=== PATIENT | male | born 1980 | race African-American/Black ===

== ENCOUNTER 2018-10-13 21:40 | Inpatient (IN) | payer OTHER ==
[2018-10-13 22:41] VITALS: BMI 20.9
--- NOTE | 2018-10-14 00:19 | HP ---
CIWA Score - Admission Criteria [facility] Guidelines: Admission for Medically Managed Detox: Requires at least one of the followin. CIWA greater than 12 2. Seizures within the past 24 hours 3. Delirium tremens within the past 24 hours 4. Hallucinations within the past 24 hours 5. Acute intervention needed for co occurring medical disorder 6. Acute intervention needed for co occurring psychiatric disorder 7. Severe withdrawal that cannot be handled at a lower level of care (continued vomiting, continued diarrhea, abnormal vital signs) requiring intravenous medication and/or fluids 8. Admission ROS [facility] - HPI Chief Complaint: Seeking admission to Rehab Allergies/Adverse Reactions: Allergies Allergy/AdvReac Type Severity Reaction Status Date / Time No Known Allergies Allergy Verified 10/13/18 22:34 History of Present Illness: 38 years old male is seeking admission to Rehab. Patient reports that this is his first admission to Rehab and to [facility]. He denies past medical history and suicidal ideation at this time Exam Limitations: No Limitations - Ebola screening Have you traveled outside of the country in the last 21 days: No (N) Have you had contact with anyone from an Ebola affected area: No Have you been sick,other than usual withdrawal symptoms: No Do you have a fever: No - Review of Systems Constitutional: No Symptoms Reported EENT: reports: No Symptoms Reported Respiratory: reports: No Symptoms reported Cardiac: reports: No Symptoms Reported GI: reports: No Symptoms Reported : reports: No Symptoms Reported Musculoskeletal: reports: No Symptoms Reported Integumentary: reports: No Symptoms Reported Neuro: reports: No Symptoms reported Endocrine: reports: No Symptoms Reported Hematology: reports: No Symptoms Reported Psychiatric: reports: No Sypmtoms Reported, Mood/Affect Appropiate, Orientated x3 Other Systems: Reviewed and Negative Patient History - Patient Medical History Hx Anemia: No Hx Asthma: No Hx Chronic Obstructive Pulmonary Disease (COPD): No Hx Cancer: No Hx Cardiac Disorders: No Hx Congestive Heart Failure: No Hx Hypertension: No Hx Hypercholesterolemia: No Hx Pacemaker: No HX Cerebrovascular Accident: No Hx Seizures: No Hx Dementia: No Hx Diabetes: No Hx Gastrointestinal Disorders: No Hx Liver Disease: No Hx Genitourinary Disorders: No Hx Sexually Transmitted Disorders: No Hx Renal Disease (ESRD): No Hx Thyroid Disease: No Hx Human Immunodeficiency Virus (HIV): No (Negative 2017) Hx Hepatitis C: No Hx Depression: No Hx Suicide Attempt: No (Denies suicidal ideation at this time) Hx Bipolar Disorder: No Hx Schizophrenia: No - Patient Surgical History Past Surgical History: Yes Hx Neurologic Surgery: No Hx Cataract Extraction: No Hx Cardiac Surgery: No Hx Lung Surgery: No Hx Abdominal Surgery: No Hx Appendectomy: No Hx Cholecystectomy: No Hx Genitourinary Surgery: No Hx Orthopedic Surgery: No Hx Hysterectomy: No Other Surgical History: Hernia repai at age 7 Anesthesia Reaction: No - PPD History Previous Implant?: Yes Documented Results: Negative w/o proof Implanted On Prior [facility] Admission?: No PPD to be Administered?: Yes - Reproductive History Patient is a Female of Child Bearing Age (11 -55 yrs old): No (male) - Smoking Cessation Smoking history: Current every day smoker Have you smoked in the past 12 months: Yes Aproximately how many cigarettes per day: 20 Hx Chewing Tobacco Use: No Initiated information on smoking cessation: Yes 'Breaking Loose' booklet given: 10/14/18 - Substance & Tx. History Hx Alcohol Use: Yes Hx Substance Use: Yes Substance Use Type: Alcohol - Substances abused Alcohol Substance route: Oral Frequency: Daily Amount used: 3 bottles vodka Age of first use: 16 Date of last use: 09/25/18 Family Disease History - Family Disease History Family Disease History: CA: Father (throat- ), Mother (breast - ) Admission Physical Exam S - Vital Signs Vital Signs: Vital Signs - 24 hr 10/13/18 10/13/18 22:33 23:45 Temperature 98.2 F 98.2 F Pulse Rate 67 67 Respiratory 18 18 Rate Blood Pressure 131/69 131/69 - Physical General Appearance: Yes: Within Normal Limits, Appropriately Dressed HEENTM: Yes: EOMI, Normal ENT Inspection, Normal Voice, YUMIKO Respiratory: Yes: Lungs Clear, Normal Breath Sounds, No Respiratory Distress Neck: Yes: Within Normal Limits Breast: Yes: Within Normal Limits Cardiology: Yes: Regular Rhythm, Regular Rate Abdominal: Yes: Normal Bowel Sounds Genitourinary: Yes: Within Normal Limits Back: Yes: Normal Inspection Musculoskeletal: Yes: full range of Motion Extremities: Yes: Normal Inspection, Normal Range of Motion Neurological: Yes: Alert, Motor Strength 5/5, Normal Mood/Affect Integumentary: Yes: Warm Lymphatic: Yes: Within Normal Limits - Diagnostic (1) Uncomplicated alcohol dependence Current Visit: Yes Status: Acute (2) Nicotine dependence Current Visit: Yes Status: Chronic (3) Marijuana dependence Current Visit: Yes Status: Chronic Cleared for Admission S - Detox or Rehab [facility] Level of Care: Observation Bed Claeared for Rehab Admission: Yes Breathalyzer - Breathalyzer Breathalyzer: 0 Urine Drug Screen - Test Device Lot number: [id number] Expiration date: 07/06/20 - Control Is test valid?: Yes - Results Drug screen NEGATIVE: No Urine drug screen results: THC-Marijuana Inpatient Rehab Admission - Rehab Decision to Admit Inpatient rehab admission?: Yes - Initial Determination Are CD services needed?: No Free of communicable disease: Yes Not in need of hospitalization: Yes - Rehab Admission Criteria Previous failed treatment: Yes Poor recovery environment: Yes Comorbidities: Yes Lacks judgement: No Patient is meeting Inpatient Rehab admission criteria:: Yes
[2018-10-14] MEDS ORDERED: LOPERAMIDE HCL 2 MG CAPSULE PO PRN (00:39)
[2018-10-14] MEDS ORDERED: MENTHOL/PHENOL 1 EACH UD MM PRN (00:39)
[2018-10-14] MEDS ORDERED: guaiFENesin 200 MG/10 ML 10 ML UNIT-DOSE CUPS PO PRN (00:39)
[2018-10-14] MEDS ORDERED: ACETAMINOPHEN 325 MG TABLET (FP) PO PRN (00:39)
[2018-10-14] MEDS ORDERED: MAG HYDROX/AL HYDROX/SIMETH 30 ML UNIT-DOSE CUP PO PRN (00:39)
[2018-10-14] MEDS ORDERED: P-EPHED 60MG/TRIPROLIDI 2.5MG TABLET PO PRN (00:39)
[2018-10-14] MEDS ORDERED: MAGNESIUM CITRATE 300 ML BOTTLE PO PRN (00:39)
[2018-10-14] MEDS ORDERED: NICOTINE POLACRILEX 2 MG GUM BC PRN (00:39)
[2018-10-14] MEDS ORDERED: MAGNESIUM HYDROX 2400MG/30ML ORAL SUSPENSION 30 ML CUP PO PRN (00:39)
[2018-10-14] MEDS ORDERED: IBUPROFEN 400 MG TABLET (FP) PO PRN (00:39)
[2018-10-14] MEDS ORDERED: TUBERCULIN PPD 5 TU/0.1ML VIAL ID ONE (01:27)
[2018-10-14] MEDS: NICOTINE 14 MG/24 HOURS TOPICAL PATCH TD SCH (09:49)
[2018-10-14] MEDS: PRENATAL VITAMINS W/ FOLIC ACID TABLET (FP) PO SCH (09:49)
[2018-10-14 11:37] LABS: HEMATOCRIT 42.2 % (35.4-49); HEMOGLOBIN 14.1 GM/dL (11.7-16.9); MCH 34.5 pg (25.7-33.7); MCHC 33.3 g/dl (32.0-35.9); MEAN CELL VOLUME 103.5 fl (80-96); MEAN PLT VOLUME 8.3 fl (7.5-11.1); PLATELET COUNT 242 K/MM3 (134-434); RBC 4.08 M/mm3 (4.00-5.60); RDW 13.5 % (11.9-15.9); WHITE BLOOD COUNT 6.8 K/mm3 (4.0-10.0)
[2018-10-14 11:54] LABS: ALBUMIN 3.2 g/dl (3.4-5.0); BILIRUBIN,TOTAL 0.4 mg/dL (0.2-1); CALCIUM 8.4 mg/dL (8.5-10.1); CREATININE 0.9 mg/dL (0.55-1.3); POTASSIUM 3.9 mmol/L (3.5-5.1); TOT PROT 6.3 g/dl (6.4-8.2)
[2018-10-14 12:02] LABS: URINE APPEARANCE Clear; URINE BILIRUBIN Negative (NEGATIVE); URINE COLOR Yellow; URINE GLUCOSE (UA) Negative (NEGATIVE); URINE KETONE Trace (NEGATIVE); URINE LEUK ESTERASE Negative (NEGATIVE); URINE NITRITE Negative (NEGATIVE); URINE PROTEIN Trace (NEGATIVE); URINE UROBILINOGEN 0.2 mg/dL (0.2-1.0)
[2018-10-14] MEDS: THIAMINE HCL 100 MG TABLET (FP) PO SCH (21:35)
[2018-10-15] MEDS: PRENATAL VITAMINS W/ FOLIC ACID TABLET (FP) PO SCH (10:00)
[2018-10-15] MEDS: NICOTINE 14 MG/24 HOURS TOPICAL PATCH TD SCH (10:00)
--- NOTE | 2018-10-15 12:25 | EKG ---
Test Reason : Blood Pressure : / mmHG Vent. Rate : 060 BPM Atrial Rate : 060 BPM P-R Int : 146 ms QRS Dur : 090 ms QT Int : 380 ms P-R-T Axes : 081 065 071 degrees QTc Int : 380 ms NORMAL SINUS RHYTHM WITH SINUS ARRHYTHMIA NORMAL ECG NO PREVIOUS ECGS AVAILABLE Confirmed by THOM GORE, LEEROY ([id number]) on 10/15/2018 12:25:43 PM Referred By: GABE FLORES Confirmed By:LEEROY TOMAS MD
[2018-10-15] MEDS: THIAMINE HCL 100 MG TABLET (FP) PO SCH (21:35)
[2018-10-15] MEDS: MELATONIN 5 MG TABLETS PO PRN (21:36)
[2018-10-16] MEDS: NICOTINE 14 MG/24 HOURS TOPICAL PATCH TD SCH (10:45)
[2018-10-16] MEDS: PRENATAL VITAMINS W/ FOLIC ACID TABLET (FP) PO SCH (10:45)
[2018-10-16] MEDS: MELATONIN 5 MG TABLETS PO PRN (21:08)
[2018-10-16] MEDS: THIAMINE HCL 100 MG TABLET (FP) PO SCH (21:08)
[2018-10-17] MEDS: NICOTINE 14 MG/24 HOURS TOPICAL PATCH TD SCH (10:42)
[2018-10-17] MEDS: PRENATAL VITAMINS W/ FOLIC ACID TABLET (FP) PO SCH (10:42)
[2018-10-17] MEDS: MELATONIN 5 MG TABLETS PO PRN (22:11)
[2018-10-17] MEDS: THIAMINE HCL 100 MG TABLET (FP) PO SCH (22:11)
[2018-10-18] MEDS: NICOTINE 14 MG/24 HOURS TOPICAL PATCH TD SCH (10:28)
[2018-10-18] MEDS: PRENATAL VITAMINS W/ FOLIC ACID TABLET (FP) PO SCH (10:28)
[2018-10-18] MEDS: MELATONIN 5 MG TABLETS PO PRN (21:16)
[2018-10-18] MEDS: THIAMINE HCL 100 MG TABLET (FP) PO SCH (21:16)
[2018-10-19] MEDS: PRENATAL VITAMINS W/ FOLIC ACID TABLET (FP) PO SCH (10:21)
[2018-10-19] MEDS: NICOTINE 14 MG/24 HOURS TOPICAL PATCH TD SCH (10:22)
[2018-10-19] MEDS: MELATONIN 5 MG TABLETS PO PRN (21:11)
[2018-10-19] MEDS: THIAMINE HCL 100 MG TABLET (FP) PO SCH (21:11)
[2018-10-20] MEDS: PRENATAL VITAMINS W/ FOLIC ACID TABLET (FP) PO SCH (10:06)
[2018-10-20] MEDS: NICOTINE 14 MG/24 HOURS TOPICAL PATCH TD SCH (10:06)
[2018-10-20] MEDS: MELATONIN 5 MG TABLETS PO PRN (22:06)
[2018-10-20] MEDS: THIAMINE HCL 100 MG TABLET (FP) PO SCH (22:06)
[2018-10-21] MEDS: PRENATAL VITAMINS W/ FOLIC ACID TABLET (FP) PO SCH (10:41)
[2018-10-21] MEDS: NICOTINE 14 MG/24 HOURS TOPICAL PATCH TD SCH (10:41)
[2018-10-21] MEDS: THIAMINE HCL 100 MG TABLET (FP) PO SCH (21:57)
[2018-10-21] MEDS: MELATONIN 5 MG TABLETS PO PRN (21:57)
[2018-10-22 07:16] VITALS: TEMP 97.2
[2018-10-22] MEDS: NICOTINE 14 MG/24 HOURS TOPICAL PATCH TD SCH (10:39)
[2018-10-22] MEDS: PRENATAL VITAMINS W/ FOLIC ACID TABLET (FP) PO SCH (10:39)
[2018-10-22] MEDS: THIAMINE HCL 100 MG TABLET (FP) PO SCH (21:42)
[2018-10-22] MEDS: MELATONIN 5 MG TABLETS PO PRN (21:42)
[2018-10-23 07:02] VITALS: BP 116/72; PULSE 78
[2018-10-23] MEDS: NICOTINE 14 MG/24 HOURS TOPICAL PATCH TD SCH (11:00)
[2018-10-23] MEDS: PRENATAL VITAMINS W/ FOLIC ACID TABLET (FP) PO SCH (11:00)
--- NOTE | 2018-10-23 15:39 | PN ---
[facility] Progress Note Note: Notified by RN, patient became agitated and verbally threatening towards staff. Patient refused redirection and while in assigned room, started yelling and threw bedside chair about the room. Security notified to unit and patient was informed by song writer, security team and counseling staff that his behaviour is unacceptable and places other patients/staff at risk. Patient is alert and oriented x 3, medically stable and denies SI/HI. Patient informed he will be administratively discharged and left unit at 3:33 pm escorted by security staff. Vital Signs Temperature 97.2 F L 10/23/18 07:02 Pulse Rate 78 10/23/18 07:02 Respiratory Rate 16 10/23/18 07:02 Blood Pressure 116/72 10/23/18 07:02 O2 Sat by Pulse Oximetry (%)
== END 2018-10-23 15:30 | disposition home or self-care (01) | DRG 772 ==
LOC: YASAS 21:40 → Y5N 10-14 00:54
PROVIDERS: ADMIT Neuromusculoskeletal Medicine & OMM; ATTEND Neuromusculoskeletal Medicine & OMM
PROC: HZ42ZZZ Group Counseling for Substance Abuse Treatment, Cognitive-Behavioral (ICD-10-PCS; principal; 2018-10-17)
DX: F10.20 Alcohol dependence, uncomplicated (principal); F12.20 Cannabis dependence, uncomplicated; F17.210 Nicotine dependence, cigarettes, uncomplicated
CPT/HCPCS: 36415; 80053; 81003; 85027; 86593; 93005; 93010

== ENCOUNTER 2020-12-31 11:28 | Inpatient (IN) | payer OTHER ==
[2020-12-31 12:47] VITALS: BMI 18.1
[2020-12-31] MEDS ORDERED: ACETAMINOPHEN 325 MG TABLET (FP) PO PRN ×2 (13:07)
[2020-12-31] MEDS ORDERED: METHOCARBAMOL 500 MG TABLET PO PRN (13:07)
[2020-12-31] MEDS ORDERED: MENTHOL/PHENOL 1 EACH UD MM PRN (13:07)
[2020-12-31] MEDS ORDERED: LORazepam 1 MG TABLET PO PRN (13:07)
[2020-12-31] MEDS ORDERED: MAG HYDROX/AL HYDROX/SIMETH 30 ML UNIT-DOSE CUP PO PRN (13:07)
[2020-12-31] MEDS ORDERED: MAGNESIUM HYDROX 2400MG/30ML ORAL SUSPENSION 30 ML CUP PO PRN (13:07)
[2020-12-31] MEDS ORDERED: NICOTINE POLACRILEX 2 MG GUM BUC PRN (13:07)
[2020-12-31] MEDS ORDERED: MAGNESIUM CITRATE 300 ML BOTTLE PO PRN (13:07)
[2020-12-31] MEDS ORDERED: IBUPROFEN 400 MG TABLET (FP) PO PRN (13:07)
[2020-12-31] MEDS ORDERED: BISMUTH SUBSALICYLATE 262 MG/15 ML BTL PO PRN (13:07)
[2020-12-31] MEDS ORDERED: ONDANSETRON *ODT* 4 MG TABLET SL PRN (13:07)
[2020-12-31] MEDS: NICOTINE 21 MG/24 HOURS TOPICAL PATCH TD SCH (15:12)
[2020-12-31] MEDS: PRENATAL VITAMINS W/ FOLIC ACID TABLET (FP) PO SCH (15:12)
[2020-12-31] MEDS: hydrOXYzine PAMOATE 25 MG CAPSULE (FP) PO SCH ×3 (15:12→22:32)
[2020-12-31 15:50] LABS: ALBUMIN 3.6 g/dl (3.4-5.0); BLOOD UREA NITROGEN 11.3 mg/dL (7-18)
[2020-12-31 15:51] LABS: HEMATOCRIT 36.7 % (35.4-49); HEMOGLOBIN 11.9 GM/dL (11.7-16.9); MCH 29.1 pg (25.7-33.7); MCHC 32.5 g/dl (32.0-35.9); MEAN CELL VOLUME 89.6 fl (80-96); MEAN PLT VOLUME 10.2 fl (7.5-11.1); PLATELET COUNT 175 10^3/uL (134-434); RDW 14.3 % (11.9-15.9); WHITE BLOOD COUNT 15.6 K/mm3 (4.0-10.0)
[2020-12-31 15:53] LABS: CREATININE 0.7 mg/dL (0.55-1.3)
[2020-12-31 15:55] LABS: BILIRUBIN,TOTAL 0.4 mg/dL (0.2-1); TOT PROT 7.2 g/dl (6.4-8.2)
[2020-12-31] MEDS: LORazepam 2 MG TABLET PO SCH ×2 (19:34→22:31)
[2020-12-31] MEDS: THIAMINE HCL 100 MG TABLET (FP) PO SCH (22:30)
[2020-12-31] MEDS: MELATONIN 5 MG TABLETS PO SCH (22:30)
[2021-01-01] MEDS: LORazepam 2 MG TABLET PO SCH ×4 (06:36→22:42)
[2021-01-01] MEDS: hydrOXYzine PAMOATE 25 MG CAPSULE (FP) PO SCH ×2 (06:36→10:35)
[2021-01-01] MEDS: PRENATAL VITAMINS W/ FOLIC ACID TABLET (FP) PO SCH (10:37)
[2021-01-01] MEDS: NICOTINE 21 MG/24 HOURS TOPICAL PATCH TD SCH (10:37)
[2021-01-01] MEDS: THIAMINE HCL 100 MG TABLET (FP) PO SCH (22:42)
[2021-01-01] MEDS: MELATONIN 5 MG TABLETS PO SCH (22:42)
[2021-01-01] MEDS: METOPROLOL TARTRATE 25 MG TABLET (FP) PO SCH (22:43)
[2021-01-01] MEDS: hydrOXYzine PAMOATE 25 MG CAPSULE (FP) PO PRN (23:09)
[2021-01-02] MEDS: LORazepam 1 MG TABLET PO SCH ×4 (06:27→22:56)
[2021-01-02] MEDS ORDERED: ATENOLOL 25 MG TABLET (FP) PO SCH (10:00)
[2021-01-02] MEDS: NICOTINE 21 MG/24 HOURS TOPICAL PATCH TD SCH (10:40)
[2021-01-02] MEDS: PANTOPRAZOLE 20 MG TABLET PO SCH (10:41)
[2021-01-02] MEDS: PRENATAL VITAMINS W/ FOLIC ACID TABLET (FP) PO SCH (10:41)
[2021-01-02] MEDS: METOPROLOL TARTRATE 25 MG TABLET (FP) PO SCH ×2 (10:44→22:55)
[2021-01-02] MEDS ORDERED: NICOTINE 10 MG CARTRIDGE (INHALER) IH PRN (12:34)
[2021-01-02] MEDS: MELATONIN 5 MG TABLETS PO SCH (22:54)
[2021-01-02] MEDS: THIAMINE HCL 100 MG TABLET (FP) PO SCH (22:55)
[2021-01-02] MEDS: QUEtiapine FUMARATE 50 MG TABLET PO SCH (22:56)
[2021-01-03] MEDS ORDERED: LORazepam 0.5 MG TABLET PO PRN
[2021-01-03] MEDS: LORazepam 0.5 MG TABLET PO SCH ×4 (06:42→22:36)
[2021-01-03] MEDS: PANTOPRAZOLE 20 MG TABLET PO SCH (10:50)
[2021-01-03] MEDS: METOPROLOL TARTRATE 25 MG TABLET (FP) PO SCH ×2 (10:50→22:37)
[2021-01-03] MEDS: PRENATAL VITAMINS W/ FOLIC ACID TABLET (FP) PO SCH (10:51)
[2021-01-03] MEDS: NICOTINE 21 MG/24 HOURS TOPICAL PATCH TD SCH (10:51)
[2021-01-03] MEDS: hydrOXYzine PAMOATE 25 MG CAPSULE (FP) PO PRN (10:51)
[2021-01-03 11:04] LABS: BASO % 0.1 % (0-2.0); EOS % 2.4 % (0-4.5); HEMATOCRIT 38.3 % (35.4-49); HEMOGLOBIN 12.8 GM/dL (11.7-16.9); MCH 29.8 pg (25.7-33.7); MCHC 33.3 g/dl (32.0-35.9); MEAN CELL VOLUME 89.4 fl (80-96); MEAN PLT VOLUME 9.9 fl (7.5-11.1); MONO % 16.5 % (3.8-10.2); PLATELET COUNT 172 10^3/uL (134-434); RBC 4.28 M/mm3 (4.00-5.60); WHITE BLOOD COUNT 7.4 K/mm3 (4.0-10.0)
[2021-01-03 11:12] LABS: INR 1.03 (0.83-1.09); PROTHROMBIN TIME (PATIENT) 12.5 SEC (9.7-13.0)
[2021-01-03 11:23] LABS: CALCIUM 8.9 mg/dL (8.5-10.1)
[2021-01-03 11:24] LABS: ALBUMIN 3.3 g/dl (3.4-5.0); BLOOD UREA NITROGEN 10.8 mg/dL (7-18)
[2021-01-03 11:27] LABS: CREATININE 0.7 mg/dL (0.55-1.3)
[2021-01-03 11:28] LABS: BILIRUBIN,TOTAL 0.4 mg/dL (0.2-1); TOT PROT 7.1 g/dl (6.4-8.2)
[2021-01-03] MEDS: QUEtiapine FUMARATE 50 MG TABLET PO SCH (22:36)
[2021-01-03] MEDS: THIAMINE HCL 100 MG TABLET (FP) PO SCH (22:36)
[2021-01-03] MEDS: MELATONIN 5 MG TABLETS PO SCH (22:37)
[2021-01-04] MEDS ORDERED: LORazepam 0.5 MG TABLET PO ONE (05:00)
[2021-01-04] MEDS: PRENATAL VITAMINS W/ FOLIC ACID TABLET (FP) PO SCH (10:05)
[2021-01-04] MEDS: PANTOPRAZOLE 20 MG TABLET PO SCH (10:05)
[2021-01-04] MEDS: METOPROLOL TARTRATE 25 MG TABLET (FP) PO SCH (10:05)
[2021-01-04] MEDS: NICOTINE 21 MG/24 HOURS TOPICAL PATCH TD SCH (10:06)
[2021-01-04 13:37] VITALS: BP 128/69; PULSE 106; TEMP 97.1
== END 2021-01-04 15:45 | disposition other institution (70) | DRG 774 ==
LOC: YASAS 11:28 → Y3N 12:49
PROVIDERS: ADMIT Allergy & Immunology; ATTEND Allergy & Immunology
PROC: HZ2ZZZZ Detoxification Services for Substance Abuse Treatment (ICD-10-PCS; principal; 2020-12-31)
DX: F10.230 Alcohol dependence with withdrawal, uncomplicated (principal); F14.20 Cocaine dependence, uncomplicated; F12.20 Cannabis dependence, uncomplicated; F17.210 Nicotine dependence, cigarettes, uncomplicated; F43.10 Post-traumatic stress disorder, unspecified; F19.24 Other psychoactive substance dependence with psychoactive substance-induced mood disorder; I10 Essential (primary) hypertension; R73.9 Hyperglycemia, unspecified; E87.1 Hypo-osmolality and hyponatremia; E88.09 Other disorders of plasma-protein metabolism, not elsewhere classified; R94.5 Abnormal results of liver function studies; E05.90 Thyrotoxicosis, unspecified without thyrotoxic crisis or storm; G47.00 Insomnia, unspecified; Z91.14 Patient's other noncompliance with medication regimen; Z56.0 Unemployment, unspecified; Z59.0 Homelessness
CPT/HCPCS: 36415; 80053; 82947; 85025; 85027; 85610; 86780; 93005; 93010; C9803; U0003; U0005

== ENCOUNTER 2021-01-04 16:55 | Inpatient (IN) | payer OTHER ==
[2021-01-04] MEDS ORDERED: MENTHOL/PHENOL 1 EACH UD MM PRN (18:16)
[2021-01-04] MEDS ORDERED: MAGNESIUM HYDROX 2400MG/30ML ORAL SUSPENSION 30 ML CUP PO PRN (18:16)
[2021-01-04] MEDS ORDERED: MAGNESIUM CITRATE 300 ML BOTTLE PO PRN (18:16)
[2021-01-04] MEDS ORDERED: P-EPHED 60MG/TRIPROLIDI 2.5MG TABLET PO PRN (18:16)
[2021-01-04] MEDS ORDERED: MAG HYDROX/AL HYDROX/SIMETH 30 ML UNIT-DOSE CUP PO PRN (18:16)
[2021-01-04] MEDS ORDERED: ACETAMINOPHEN 325 MG TABLET (FP) PO PRN (18:16)
[2021-01-04] MEDS ORDERED: guaiFENesin 200 MG/10 ML 10 ML UNIT-DOSE CUPS PO PRN (18:16)
[2021-01-04] MEDS ORDERED: NICOTINE POLACRILEX 2 MG GUM BUC PRN (18:16)
[2021-01-04] MEDS ORDERED: LOPERAMIDE HCL 2 MG CAPSULE PO PRN (18:16)
[2021-01-04] MEDS ORDERED: IBUPROFEN 400 MG TABLET (FP) PO PRN (18:16)
[2021-01-04] MEDS: THIAMINE HCL 100 MG TABLET (FP) PO SCH (21:29)
[2021-01-04] MEDS: MELATONIN 5 MG TABLETS PO SCH (21:29)
[2021-01-04] MEDS ORDERED: PT OWN MED DRAWER 7, Y5N ONE (21:30)
[2021-01-04] MEDS: QUEtiapine FUMARATE 300 MG TABLET PO SCH (21:31)
[2021-01-04] MEDS: METOPROLOL TARTRATE 25 MG TABLET (FP) PO SCH (21:31)
[2021-01-05] MEDS ORDERED: PT OWN MED DRAWER 7, Y5N ONE ×3 (08:45→19:56)
[2021-01-05] MEDS: PRENATAL VITAMINS W/ FOLIC ACID TABLET (FP) PO SCH (09:29)
[2021-01-05] MEDS: PANTOPRAZOLE 20 MG TABLET PO SCH (09:29)
[2021-01-05] MEDS: NICOTINE 7 MG/24 HOURS TOPICAL PATCH TD SCH (09:29)
[2021-01-05] MEDS: METOPROLOL TARTRATE 25 MG TABLET (FP) PO SCH ×2 (09:29→22:16)
[2021-01-05] MEDS ORDERED: INSULIN (NOVOLOG) ASPART 100 UNITS/ML 10ML VIAL ONE (16:38)
[2021-01-05] MEDS: INSULIN SLIDING SCALE (NOVOLOG) 1 VIAL SQ SCH ×2 (16:40→21:06)
[2021-01-05] MEDS ORDERED: INSULIN (NOVOLOG) ASPART 100 UNITS/ML 10ML VIAL SQ ONE (17:04)
[2021-01-05] MEDS: QUEtiapine FUMARATE 300 MG TABLET PO SCH (21:45)
[2021-01-05] MEDS: THIAMINE HCL 100 MG TABLET (FP) PO SCH (21:45)
[2021-01-05] MEDS: MELATONIN 5 MG TABLETS PO SCH (21:46)
[2021-01-05] MEDS: hydrOXYzine PAMOATE 25 MG CAPSULE (FP) PO PRN (21:46)
[2021-01-06] MEDS: INSULIN SLIDING SCALE (NOVOLOG) 1 VIAL SQ SCH ×4 (06:36→21:25)
[2021-01-06] MEDS ORDERED: PT OWN MED DRAWER 7, Y5N ONE ×3 (07:28→19:23)
[2021-01-06] MEDS: PRENATAL VITAMINS W/ FOLIC ACID TABLET (FP) PO SCH (10:02)
[2021-01-06] MEDS: NICOTINE 7 MG/24 HOURS TOPICAL PATCH TD SCH (10:02)
[2021-01-06] MEDS: PANTOPRAZOLE 20 MG TABLET PO SCH (10:02)
[2021-01-06] MEDS: METOPROLOL TARTRATE 25 MG TABLET (FP) PO SCH ×2 (10:12→21:23)
[2021-01-06] MEDS: TETRAHYDROZOLINE HCL EYE DROPS OU PRN (15:36)
[2021-01-06] MEDS ORDERED: INSULIN (NOVOLOG) ASPART 100 UNITS/ML 10ML VIAL ONE (21:15)
[2021-01-06] MEDS: QUEtiapine FUMARATE 300 MG TABLET PO SCH (21:24)
[2021-01-06] MEDS: THIAMINE HCL 100 MG TABLET (FP) PO SCH (21:25)
[2021-01-06] MEDS: MELATONIN 5 MG TABLETS PO SCH (21:25)
[2021-01-07] MEDS: INSULIN SLIDING SCALE (NOVOLOG) 1 VIAL SQ SCH ×4 (06:41→21:48)
[2021-01-07] MEDS ORDERED: PT OWN MED DRAWER 7, Y5N ONE ×3 (08:44→19:09)
[2021-01-07] MEDS: PANTOPRAZOLE 20 MG TABLET PO SCH (09:54)
[2021-01-07] MEDS: ATENOLOL 25 MG TABLET (FP) PO SCH (09:54)
[2021-01-07] MEDS: NICOTINE 7 MG/24 HOURS TOPICAL PATCH TD SCH (09:54)
[2021-01-07] MEDS: PRENATAL VITAMINS W/ FOLIC ACID TABLET (FP) PO SCH (09:54)
[2021-01-07] MEDS: TETRAHYDROZOLINE HCL EYE DROPS OU PRN (09:56)
[2021-01-07] MEDS: METHIMAZOLE 10 MG TABLET PO SCH ×2 (11:57→21:33)
[2021-01-07] MEDS ORDERED: INSULIN (NOVOLOG) ASPART 100 UNITS/ML 10ML VIAL ONE ×2 (16:55→21:49)
[2021-01-07] MEDS: MELATONIN 5 MG TABLETS PO SCH (21:31)
[2021-01-07] MEDS: THIAMINE HCL 100 MG TABLET (FP) PO SCH (21:32)
[2021-01-07] MEDS: QUEtiapine FUMARATE 300 MG TABLET PO SCH (21:32)
[2021-01-07] MEDS: hydrOXYzine PAMOATE 25 MG CAPSULE (FP) PO PRN (21:33)
[2021-01-08] MEDS: INSULIN SLIDING SCALE (NOVOLOG) 1 VIAL SQ SCH ×4 (06:48→21:41)
[2021-01-08] MEDS ORDERED: PT OWN MED DRAWER 7, Y5N ONE ×3 (08:13→18:30)
[2021-01-08] MEDS: NICOTINE 7 MG/24 HOURS TOPICAL PATCH TD SCH (09:43)
[2021-01-08] MEDS: PRENATAL VITAMINS W/ FOLIC ACID TABLET (FP) PO SCH (09:43)
[2021-01-08] MEDS: PANTOPRAZOLE 20 MG TABLET PO SCH (09:43)
[2021-01-08] MEDS: ATENOLOL 25 MG TABLET (FP) PO SCH (09:44)
[2021-01-08] MEDS: METHIMAZOLE 10 MG TABLET PO SCH ×2 (09:44→21:40)
[2021-01-08] MEDS: NICOTINE 10 MG CARTRIDGE (INHALER) IH PRN (09:45)
[2021-01-08] MEDS: TETRAHYDROZOLINE HCL EYE DROPS OU PRN ×2 (09:53→21:38)
[2021-01-08] MEDS: QUEtiapine FUMARATE 300 MG TABLET PO SCH (21:39)
[2021-01-08] MEDS: THIAMINE HCL 100 MG TABLET (FP) PO SCH (21:39)
[2021-01-08] MEDS: hydrOXYzine PAMOATE 25 MG CAPSULE (FP) PO PRN (21:40)
[2021-01-08] MEDS: MELATONIN 5 MG TABLETS PO SCH (21:40)
[2021-01-09] MEDS ORDERED: INSULIN (NOVOLOG) ASPART 100 UNITS/ML 10ML VIAL ONE ×3 (07:04→21:49)
[2021-01-09] MEDS: INSULIN SLIDING SCALE (NOVOLOG) 1 VIAL SQ SCH ×4 (08:34→21:34)
[2021-01-09] MEDS ORDERED: PT OWN MED DRAWER 7, Y5N ONE ×3 (08:53→18:46)
[2021-01-09] MEDS: NICOTINE 7 MG/24 HOURS TOPICAL PATCH TD SCH (09:45)
[2021-01-09] MEDS: ATENOLOL 25 MG TABLET (FP) PO SCH (09:46)
[2021-01-09] MEDS: PANTOPRAZOLE 20 MG TABLET PO SCH (09:46)
[2021-01-09] MEDS: PRENATAL VITAMINS W/ FOLIC ACID TABLET (FP) PO SCH (09:46)
[2021-01-09] MEDS: METHIMAZOLE 10 MG TABLET PO SCH ×2 (09:47→21:32)
[2021-01-09] MEDS: QUEtiapine FUMARATE 300 MG TABLET PO SCH (21:31)
[2021-01-09] MEDS: THIAMINE HCL 100 MG TABLET (FP) PO SCH (21:32)
[2021-01-09] MEDS: MELATONIN 5 MG TABLETS PO SCH (21:32)
[2021-01-10] MEDS: INSULIN SLIDING SCALE (NOVOLOG) 1 VIAL SQ SCH ×4 (06:53→22:12)
[2021-01-10] MEDS ORDERED: PT OWN MED DRAWER 7, Y5N ONE (08:27)
[2021-01-10] MEDS: PANTOPRAZOLE 20 MG TABLET PO SCH (09:32)
[2021-01-10] MEDS: ATENOLOL 25 MG TABLET (FP) PO SCH (09:32)
[2021-01-10] MEDS: METHIMAZOLE 10 MG TABLET PO SCH ×2 (09:33→22:13)
[2021-01-10] MEDS: PRENATAL VITAMINS W/ FOLIC ACID TABLET (FP) PO SCH (09:33)
[2021-01-10] MEDS: NICOTINE 7 MG/24 HOURS TOPICAL PATCH TD SCH (09:33)
[2021-01-10] MEDS: TETRAHYDROZOLINE HCL EYE DROPS OU PRN ×2 (09:33→22:10)
[2021-01-10] MEDS ORDERED: INSULIN (NOVOLOG) ASPART 100 UNITS/ML 10ML VIAL ONE ×3 (11:55→22:51)
[2021-01-10] MEDS: THIAMINE HCL 100 MG TABLET (FP) PO SCH (22:11)
[2021-01-10] MEDS: QUEtiapine FUMARATE 300 MG TABLET PO SCH (22:12)
[2021-01-10] MEDS: MELATONIN 5 MG TABLETS PO SCH (22:13)
[2021-01-11] MEDS: INSULIN SLIDING SCALE (NOVOLOG) 1 VIAL SQ SCH ×4 (06:43→22:00)
[2021-01-11] MEDS ORDERED: PT OWN MED DRAWER 7, Y5N ONE ×3 (08:18→20:28)
[2021-01-11] MEDS: NICOTINE 7 MG/24 HOURS TOPICAL PATCH TD SCH (09:24)
[2021-01-11] MEDS: PRENATAL VITAMINS W/ FOLIC ACID TABLET (FP) PO SCH (09:24)
[2021-01-11] MEDS: ATENOLOL 25 MG TABLET (FP) PO SCH (09:25)
[2021-01-11] MEDS: PANTOPRAZOLE 20 MG TABLET PO SCH (09:25)
[2021-01-11] MEDS: METHIMAZOLE 10 MG TABLET PO SCH ×2 (09:25→22:00)
[2021-01-11] MEDS ORDERED: MASKS NR ONE (09:34)
[2021-01-11] MEDS: QUEtiapine FUMARATE 300 MG TABLET PO SCH (21:58)
[2021-01-11] MEDS: THIAMINE HCL 100 MG TABLET (FP) PO SCH (21:58)
[2021-01-11] MEDS: MELATONIN 5 MG TABLETS PO SCH (21:59)
[2021-01-12] MEDS: INSULIN SLIDING SCALE (NOVOLOG) 1 VIAL SQ SCH ×4 (07:03→21:30)
[2021-01-12] MEDS ORDERED: PT OWN MED DRAWER 7, Y5N ONE ×2 (08:48→09:56)
[2021-01-12] MEDS: PANTOPRAZOLE 20 MG TABLET PO SCH (09:55)
[2021-01-12] MEDS: PRENATAL VITAMINS W/ FOLIC ACID TABLET (FP) PO SCH (09:55)
[2021-01-12] MEDS: METHIMAZOLE 10 MG TABLET PO SCH ×2 (09:55→21:30)
[2021-01-12] MEDS: NICOTINE 7 MG/24 HOURS TOPICAL PATCH TD SCH (09:55)
[2021-01-12] MEDS: ATENOLOL 25 MG TABLET (FP) PO SCH (09:55)
[2021-01-12] MEDS: NICOTINE 10 MG CARTRIDGE (INHALER) IH PRN (10:20)
[2021-01-12] MEDS ORDERED: INSULIN (NOVOLOG) ASPART 100 UNITS/ML 10ML VIAL ONE (16:20)
[2021-01-12] MEDS ORDERED: QUEtiapine FUMARATE 50 MG TABLET PO SCH (19:12)
[2021-01-12] MEDS: MELATONIN 5 MG TABLETS PO SCH (21:28)
[2021-01-12] MEDS: THIAMINE HCL 100 MG TABLET (FP) PO SCH (21:28)
[2021-01-12] MEDS ORDERED: INSULIN (LEVEMIR) 100 UNITS/ML UNITS SQ ONE (21:59)
[2021-01-13] MEDS: INSULIN SLIDING SCALE (NOVOLOG) 1 VIAL SQ SCH ×2 (07:36→17:31)
[2021-01-13] MEDS ORDERED: PT OWN MED DRAWER 7, Y5N ONE ×3 (08:03→09:46)
[2021-01-13] MEDS: PANTOPRAZOLE 20 MG TABLET PO SCH (09:44)
[2021-01-13] MEDS: PRENATAL VITAMINS W/ FOLIC ACID TABLET (FP) PO SCH (09:45)
[2021-01-13] MEDS: NICOTINE 7 MG/24 HOURS TOPICAL PATCH TD SCH (09:45)
[2021-01-13] MEDS: ATENOLOL 25 MG TABLET (FP) PO SCH (09:45)
[2021-01-13] MEDS: METHIMAZOLE 10 MG TABLET PO SCH ×2 (09:45→21:49)
[2021-01-13] MEDS: TETRAHYDROZOLINE HCL EYE DROPS OU PRN (09:46)
[2021-01-13] MEDS ORDERED: hydrOXYzine PAMOATE 25 MG CAPSULE (FP) PO PRN (11:16)
[2021-01-13] MEDS: PRAZOSIN HCL 1 MG CAPSULE PO SCH (21:47)
[2021-01-13] MEDS: THIAMINE HCL 100 MG TABLET (FP) PO SCH (21:48)
[2021-01-13] MEDS ORDERED: QUEtiapine FUMARATE 200 MG TABLET PO SCH (22:00)
[2021-01-14] MEDS: INSULIN SLIDING SCALE (NOVOLOG) 1 VIAL SQ SCH (07:12)
[2021-01-14] MEDS: PRENATAL VITAMINS W/ FOLIC ACID TABLET (FP) PO SCH (09:41)
[2021-01-14] MEDS: PANTOPRAZOLE 20 MG TABLET PO SCH (09:41)
[2021-01-14] MEDS: ATENOLOL 25 MG TABLET (FP) PO SCH (09:41)
[2021-01-14] MEDS: METHIMAZOLE 10 MG TABLET PO SCH ×2 (09:41→21:25)
[2021-01-14] MEDS: NICOTINE 7 MG/24 HOURS TOPICAL PATCH TD SCH (09:42)
[2021-01-14] MEDS: TETRAHYDROZOLINE HCL EYE DROPS OU PRN (09:43)
[2021-01-14] MEDS: metFORMIN HCL 500 MG TABLET (FP) PO SCH (16:48)
[2021-01-14] MEDS ORDERED: PT OWN MED DRAWER 7, Y5N ONE (19:10)
[2021-01-14] MEDS: THIAMINE HCL 100 MG TABLET (FP) PO SCH (21:24)
[2021-01-14] MEDS: QUEtiapine FUMARATE 50 MG TABLET PO SCH (21:25)
[2021-01-14] MEDS: PRAZOSIN HCL 1 MG CAPSULE PO SCH (21:25)
[2021-01-15] MEDS: metFORMIN HCL 500 MG TABLET (FP) PO SCH ×2 (06:47→16:40)
[2021-01-15] MEDS ORDERED: PT OWN MED DRAWER 7, Y5N ONE ×3 (08:55→22:14)
[2021-01-15] MEDS: METHIMAZOLE 10 MG TABLET PO SCH ×2 (09:37→21:49)
[2021-01-15] MEDS: PANTOPRAZOLE 20 MG TABLET PO SCH (09:37)
[2021-01-15] MEDS: ATENOLOL 25 MG TABLET (FP) PO SCH (09:37)
[2021-01-15] MEDS: PRENATAL VITAMINS W/ FOLIC ACID TABLET (FP) PO SCH (09:37)
[2021-01-15] MEDS: NICOTINE 7 MG/24 HOURS TOPICAL PATCH TD SCH (09:37)
[2021-01-15] MEDS: PRAZOSIN HCL 1 MG CAPSULE PO SCH (21:43)
[2021-01-15] MEDS: QUEtiapine FUMARATE 50 MG TABLET PO SCH (21:48)
[2021-01-15] MEDS: THIAMINE HCL 100 MG TABLET (FP) PO SCH (21:49)
[2021-01-16] MEDS: metFORMIN HCL 500 MG TABLET (FP) PO SCH ×2 (06:28→17:49)
[2021-01-16] MEDS ORDERED: PT OWN MED DRAWER 7, Y5N ONE ×3 (08:47→21:56)
[2021-01-16] MEDS: ATENOLOL 25 MG TABLET (FP) PO SCH (10:11)
[2021-01-16] MEDS: METHIMAZOLE 10 MG TABLET PO SCH ×2 (10:11→21:39)
[2021-01-16] MEDS: PRENATAL VITAMINS W/ FOLIC ACID TABLET (FP) PO SCH (10:11)
[2021-01-16] MEDS: NICOTINE 7 MG/24 HOURS TOPICAL PATCH TD SCH (10:11)
[2021-01-16] MEDS: PANTOPRAZOLE 20 MG TABLET PO SCH (10:11)
[2021-01-16] MEDS: PRAZOSIN HCL 1 MG CAPSULE PO SCH (21:39)
[2021-01-16] MEDS: QUEtiapine FUMARATE 50 MG TABLET PO SCH (21:39)
[2021-01-16] MEDS: THIAMINE HCL 100 MG TABLET (FP) PO SCH (21:40)
[2021-01-17] MEDS: metFORMIN HCL 500 MG TABLET (FP) PO SCH ×2 (06:42→16:49)
[2021-01-17] MEDS ORDERED: PT OWN MED DRAWER 7, Y5N ONE (08:58)
[2021-01-17] MEDS: ATENOLOL 25 MG TABLET (FP) PO SCH (10:00)
[2021-01-17] MEDS: METHIMAZOLE 10 MG TABLET PO SCH ×2 (10:01→21:27)
[2021-01-17] MEDS: NICOTINE 7 MG/24 HOURS TOPICAL PATCH TD SCH (10:01)
[2021-01-17] MEDS: TETRAHYDROZOLINE HCL EYE DROPS OU PRN (10:01)
[2021-01-17] MEDS: PANTOPRAZOLE 20 MG TABLET PO SCH (10:01)
[2021-01-17] MEDS: PRENATAL VITAMINS W/ FOLIC ACID TABLET (FP) PO SCH (10:01)
[2021-01-17] MEDS: THIAMINE HCL 100 MG TABLET (FP) PO SCH (21:26)
[2021-01-17] MEDS: PRAZOSIN HCL 1 MG CAPSULE PO SCH (21:26)
[2021-01-17] MEDS: QUEtiapine FUMARATE 50 MG TABLET PO SCH (21:26)
[2021-01-18] MEDS: metFORMIN HCL 500 MG TABLET (FP) PO SCH ×2 (06:50→16:36)
[2021-01-18] MEDS ORDERED: PT OWN MED DRAWER 7, Y5N ONE ×2 (09:25→18:40)
[2021-01-18] MEDS: METHIMAZOLE 10 MG TABLET PO SCH ×2 (09:36→21:32)
[2021-01-18] MEDS: NICOTINE 7 MG/24 HOURS TOPICAL PATCH TD SCH (09:36)
[2021-01-18] MEDS: PRENATAL VITAMINS W/ FOLIC ACID TABLET (FP) PO SCH (09:36)
[2021-01-18] MEDS: TETRAHYDROZOLINE HCL EYE DROPS OU PRN (09:36)
[2021-01-18] MEDS: ATENOLOL 25 MG TABLET (FP) PO SCH (09:36)
[2021-01-18] MEDS: PANTOPRAZOLE 20 MG TABLET PO SCH (09:36)
[2021-01-18] MEDS: THIAMINE HCL 100 MG TABLET (FP) PO SCH (21:31)
[2021-01-18] MEDS: QUEtiapine FUMARATE 50 MG TABLET PO SCH (21:31)
[2021-01-18] MEDS: PRAZOSIN HCL 1 MG CAPSULE PO SCH (21:32)
[2021-01-19] MEDS: metFORMIN HCL 500 MG TABLET (FP) PO SCH (06:49)
[2021-01-19 06:50] VITALS: TEMP 96.8
[2021-01-19] MEDS ORDERED: PT OWN MED DRAWER 7, Y5N ONE (08:37)
[2021-01-19] MEDS: PANTOPRAZOLE 20 MG TABLET PO SCH (09:08)
[2021-01-19] MEDS: ATENOLOL 25 MG TABLET (FP) PO SCH (09:08)
[2021-01-19] MEDS: PRENATAL VITAMINS W/ FOLIC ACID TABLET (FP) PO SCH (09:08)
[2021-01-19] MEDS: METHIMAZOLE 10 MG TABLET PO SCH (09:08)
[2021-01-19] MEDS: NICOTINE 10 MG CARTRIDGE (INHALER) IH PRN (09:09)
[2021-01-19] MEDS: NICOTINE 7 MG/24 HOURS TOPICAL PATCH TD SCH (09:09)
[2021-01-19 10:07] VITALS: BP 133/83; PULSE 112
== END 2021-01-19 10:19 | disposition home or self-care (01) | DRG 772 ==
LOC: YASAS 16:55 → Y3E 16:56
PROVIDERS: ADMIT Allergy & Immunology; ATTEND Allergy & Immunology
PROC: HZ42ZZZ Group Counseling for Substance Abuse Treatment, Cognitive-Behavioral (ICD-10-PCS; principal; 2021-01-04)
DX: F10.20 Alcohol dependence, uncomplicated (principal); F14.20 Cocaine dependence, uncomplicated; F12.20 Cannabis dependence, uncomplicated; F17.210 Nicotine dependence, cigarettes, uncomplicated; F19.24 Other psychoactive substance dependence with psychoactive substance-induced mood disorder; F43.10 Post-traumatic stress disorder, unspecified; G47.00 Insomnia, unspecified; I10 Essential (primary) hypertension; E05.90 Thyrotoxicosis, unspecified without thyrotoxic crisis or storm; R73.9 Hyperglycemia, unspecified; Z86.59 Personal history of other mental and behavioral disorders; Z91.14 Patient's other noncompliance with medication regimen; Z59.0 Homelessness; Z56.0 Unemployment, unspecified
CPT/HCPCS: 82962; 83036